=== PATIENT | male | born 1940 | race Hispanic/Latino ===

== ENCOUNTER 2020-05-19 17:49 | Inpatient (IN) | payer OTHER ==
[~2020-05-19] VITALS: Ht 170.2 cm; Wt 103.0 kg
[~2020-05-19 17:49] MED LIST: CALC500T7 PO; CHOL500050 PO; ETOMIDATE 2 MG/ML 10 ML VIAL IVP ONE; IBUP-2070 PO; MAGN27TA2 PO; METO-408 PO; ROCURONIUM BROMIDE 10MG/1ML 5ML VL IV ONE; TAMS0.4C32 PO; VALS80TA30 PO; [UNRECOGNIZED DRUG - OTHER]
[2020-05-19] MEDS ORDERED: ALBUTEROL INHALER 90MCG/INH IH ONE (18:33)
[2020-05-19] MEDS ORDERED: SODIUM CHLORIDE 0.9% 1000ML 3,000 ML IV ONE (18:34)
[2020-05-19 18:50] LABS: ABG BASE EXCESS 0.7 mmol/L (-2.0-3.0); ABG HCO3 23.7 mmol/L (21.0-28.0); ABG OXYGEN SATURATION 87.8 % (95.0-99.0); ABG PCO2 34 mmHg (35-48)
[2020-05-19] MEDS ORDERED: AZITHROMYCIN 500MG+NS 250ML 250 ML IV ONE (19:03)
[2020-05-19] MEDS ORDERED: CEFTRIAXONE SODIUM 1 GM ONE (19:04)
[2020-05-19 19:26] LABS: BASOPHILS % (AUTO) 0.1 % (0.0-5.0); HEMATOCRIT 49.1 % (42-54); LYMPHOCYTES % (AUTO) 6.9 % (21.0-51.0); MEAN CORPUSCULAR HEMOGLOBIN 30.3 pg (27.0-33.0); MEAN CORPUSCULAR HGB CONC 34.2 g/dL (32.0-36.0); MEAN CORPUSCULAR VOLUME 88.6 fL (79-99); MONOCYTES % (AUTO) 10.3 % (3.0-13.0); NEUTROPHILS % (AUTO) 82.1 % (40.0-77.0); PLATELET COUNT (AUTO) 237 K/uL (130-400); RED BLOOD CELL COUNT(AUTO) 5.54 MIL/uL (4.50-6.20); RED CELL DISTRIBUTION WIDTH 13.6 % (11.0-15.5)
[2020-05-19 19:39] LABS: INR 0.99 (0.85-1.15); PARTIAL THROMBOPLASTIN TIME 32.5 SEC (26.3-35.5); PROTHROMBIN TIME 10.7 SEC (9.6-11.6)
[2020-05-19 19:41] LABS: RAPID GROUP A STREP NEGATIVE (NEGATIVE)
[2020-05-19 20:09] LABS: CREATININE 2.4 mg/dL (0.5-1.5)
[2020-05-19] MEDS ORDERED: METHYLPREDNISOLONE SOD SUCC 40MG/ML 1ML ONE (20:11)
[2020-05-19 20:14] LABS: ALBUMIN 2.9 g/dL (3.5-5.0); BILIRUBIN,TOTAL 0.9 mg/dL (0.2-1.0); TOTAL PROTEIN, SERUM 7.1 g/dL (6.0-8.3)
[2020-05-19] MEDS ORDERED: POTASSIUM CHLORIDE 10MEQ/100ML 100 ML IV ONE (20:42)
[2020-05-19] MEDS: SODIUM CHLORIDE 0.9% 1000ML 1,000 ML IV SCH (20:57)
[2020-05-19] MEDS: CEFTRIAXONE SODIUM 1 GM IV SCH (21:00)
[2020-05-19] MEDS ORDERED: LACTULOSE 20 GM/30 ML UDCUP PO PRN (21:00)
[2020-05-19] MEDS: AZITHROMYCIN 500MG+NS 250ML 250 ML IV SCH (21:00)
[2020-05-19] MEDS ORDERED: ACETAMINOPHEN 325 MG TAB PO PRN (21:00)
[2020-05-19] MEDS: METHYLPREDNISOLONE SOD SUCC 125MG/2ML VIAL IV SCH (21:00)
[2020-05-19] MEDS ORDERED: ALBUTEROL INHALER 90MCG/INH IH PRN (21:00)
[2020-05-20] VITALS (26 sets, daily range): BP systolic 100–145; BP diastolic 48–97
[2020-05-20 03:45] LABS: APPEARANCE,URINE Clear (CLEAR); BILIRUBIN,URINE Negative (NEGATIVE); COLOR,URINE Yellow (YELLOW); GLUCOSE, URINE (UA) Negative (NEGATIVE); KETONES,URINE Trace mg/dL (NEGATIVE); LEUKOCYTE ESTERASE ,URINE Negative (NEGATIVE); NITRATE,URINE Negative (NEGATIVE); OCCULT BLOOD,URINE Negative (NEGATIVE); PROTEIN,URINE Negative (NEGATIVE)
[2020-05-20] MEDS ORDERED: METHYLPREDNISOLONE SOD SUCC 40MG/ML 1ML ONE (04:43)
[2020-05-20 04:49] LABS: BASOPHILS % (AUTO) 0.1 % (0.0-5.0); HEMATOCRIT 47.3 % (42-54); LYMPHOCYTES % (AUTO) 7.7 % (21.0-51.0); MEAN CORPUSCULAR HEMOGLOBIN 29.7 pg (27.0-33.0); MEAN CORPUSCULAR HGB CONC 33.6 g/dL (32.0-36.0); MEAN CORPUSCULAR VOLUME 88.2 fL (79-99); MONOCYTES % (AUTO) 6.4 % (3.0-13.0); PLATELET COUNT (AUTO) 226 K/uL (130-400); RED BLOOD CELL COUNT(AUTO) 5.36 MIL/uL (4.50-6.20); RED CELL DISTRIBUTION WIDTH 13.7 % (11.0-15.5); WHITE BLOOD COUNT (AUTO) 7.5 K/uL (4.8-10.8)
[2020-05-20] MEDS: METHYLPREDNISOLONE SOD SUCC 125MG/2ML VIAL IV SCH ×3 (05:00→20:32)
[2020-05-20 05:02] LABS: ALBUMIN 2.6 g/dL (3.5-5.0); BILIRUBIN,TOTAL 0.6 mg/dL (0.2-1.0); CREATININE 2.1 mg/dL (0.5-1.5); POTASSIUM 3.6 mmol/L (3.5-5.1); TOTAL PROTEIN, SERUM 6.6 g/dL (6.0-8.3)
[2020-05-20] MEDS: SODIUM CHLORIDE 0.9% 1000ML 1,000 ML IV SCH (06:57)
[2020-05-20] MEDS ORDERED: ENOXAPARIN SODIUM 40 MG/0.4 ML SYRINGE SQ ONE (08:57)
[2020-05-20] MEDS ORDERED: ENOXAPARIN SODIUM 40 MG/0.4 ML SYRINGE SQ SCH (09:00)
--- NOTE | 2020-05-20 09:40 | NUR ---
Admitted from ICU, AAOX3, noted shortness of breath with minor exertion, currently on BIPAP 16/6, Rate 12, FIO2 60%, COVID positive, Dx Acute Hypoxic Respiratory Failure.
[2020-05-20] MEDS: FAMOTIDINE 20MG TAB 20 MG TAB PO SCH (10:58)
[2020-05-20] MEDS ORDERED: FUROSEMIDE 10 MG/ML 4ML VIAL IV SCH (12:07)
[2020-05-20] MEDS ORDERED: ASPI-1005 PO (12:11)
[2020-05-20] MEDS ORDERED: DEXL60CA3 PO (12:11)
[2020-05-20] MEDS ORDERED: LOSA1TAB54 PO (12:11)
[2020-05-20] MEDS ORDERED: MIRA25TA PO (12:11)
[2020-05-20] MEDS ORDERED: BRIM5DRO OP (12:11)
[2020-05-20] MEDS ORDERED: CARB15DR OP (12:11)
[2020-05-20] MEDS ORDERED: ENOXAPARIN SODIUM 60 MG/0.6 ML SQ SCH (15:45)
[2020-05-20] MEDS ORDERED: POTASSIUM CHLORIDE 10% ELIXIR 20 MEQ/15 ML UDCUP PO PRN (17:15)
[2020-05-20] MEDS ORDERED: POTASSIUM CHLORIDE 20MEQ/100ML 100 ML IV PRN (17:15)
[2020-05-20] MEDS ORDERED: LIDOCAINE HCL-MPF 1% 2ML VIAL IV PRN ×2 (17:15)
[2020-05-20] MEDS: POTASSIUM CHLORIDE 20 MEQ ERTAB PO PRN (17:22)
--- NOTE | 2020-05-20 18:45 | NUR ---
Paged Dr Wolff to notify about pt's speaking to patient's son X 2 via phone and now agrees for possible Convalescent Plasma Transfusion, pending MD to return call.
--- NOTE | 2020-05-20 20:00 | NUR ---
ASSESSMENT PT RESTING QUIETLY IN BED. BIPAP 16/6/12/60% WITH TENT INTACT. PT PULLED OUT IV. IV RESTARTED TO RIGHT WRIST 20G WITHOUT DIFFICULTY. AAOX4, FALLOWS ALL COMMANDS, SLOVAK SPEAKING ONLY, BOILERMAKER'S ASSISTANT USED. CURRENTLY DENIES ANY PAIN. CALLBELL REVIEWED AND WITHIN REACH, BEDSIDE MONITORS ADJUSTED PER PT PARAMETERS. ASSESSMENT COMPLETED, SEE FOLLOW SHEET
[2020-05-20] MEDS: CEFTRIAXONE SODIUM 1 GM IV SCH (20:32)
[2020-05-20] MEDS: AZITHROMYCIN 500MG+NS 250ML 250 ML IV SCH (20:32)
--- NOTE | 2020-05-20 23:59 | NUR ---
ASSESSMENT PT RESTING QUIETLY IN BED. BIPAP 16//12/60% WITH TENT INTACT. AAOX4, FALLOWS ALL COMMANDS. CURRENTLY DENIES ANY PAIN. CALLBELL WITHIN REACH. ASSESSMENT COMPLETED, SEE FOLLOW SHEET
[2020-05-21] VITALS (39 sets, daily range): BP systolic 110–156; BP diastolic 45–102
[2020-05-21 04:28] LABS: ABG OXYGEN SATURATION 93.2 % (95.0-99.0); ABG PCO2 33 mmHg (35-48)
[2020-05-21] MEDS: METHYLPREDNISOLONE SOD SUCC 125MG/2ML VIAL IV SCH ×3 (05:10→20:49)
[2020-05-21 06:41] LABS: BASOPHILS % (AUTO) 0.1 % (0.0-5.0); HEMATOCRIT 47.7 % (42-54); LYMPHOCYTES % (AUTO) 8.1 % (21.0-51.0); MEAN CORPUSCULAR HEMOGLOBIN 29.2 pg (27.0-33.0); MEAN CORPUSCULAR HGB CONC 32.9 g/dL (32.0-36.0); MEAN CORPUSCULAR VOLUME 88.7 fL (79-99); NEUTROPHILS % (AUTO) 82.2 % (40.0-77.0); PLATELET COUNT (AUTO) 264 K/uL (130-400); RED BLOOD CELL COUNT(AUTO) 5.38 MIL/uL (4.50-6.20); RED CELL DISTRIBUTION WIDTH 13.8 % (11.0-15.5); WHITE BLOOD COUNT (AUTO) 10.5 K/uL (4.8-10.8)
[2020-05-21 07:27] LABS: CREATININE 1.5 mg/dL (0.5-1.5); MAGNESIUM 2.4 mg/dL (1.80-2.40); PHOSPHORUS 3.2 mg/dL (2.5-4.9); POTASSIUM 3.4 mmol/L (3.5-5.1)
[2020-05-21] MEDS: FUROSEMIDE 10 MG/ML 2ML VIAL IV SCH (08:33)
[2020-05-21] MEDS: FAMOTIDINE 20MG TAB 20 MG TAB PO SCH (08:33)
[2020-05-21] MEDS: ENOXAPARIN SODIUM 100 MG/1 ML SQ SCH (08:34)
[2020-05-21] MEDS: INSULIN HUMULIN R 100 UNIT/ML 3ML SQ SCH ×3 (11:30→20:47)
--- NOTE | 2020-05-21 15:40 | NUR ---
cm note spoke to pt states resides at home alone, is currently out of state visiting family.no dme, ambulates per self, uses Cpap at hs. states he is independent with ambulation and adls . has 2 adult sons who help him with meals, they provide him at home. dc plan is back to home at time of dc. states no dc needs. Addendum: 05/21/20 at 1544 by RASHMI ROLDAN CM Amended: Links added.
[2020-05-21] MEDS ORDERED: POLYETHYLENE GLYCOL 3350 17 GM POWD.PACK ONE (15:45)
[2020-05-21] MEDS: POTASSIUM CHLORIDE 20 MEQ ERTAB PO PRN ×2 (15:49→15:59)
--- NOTE | 2020-05-21 19:30 | NUR ---
ASSESSMENT PT RESTING QUIETLY IN BED. HIGH FLOW O2 INTACT. AAOX4, FALLOWS ALL COMMANDS, INDONESIAN SPEAKING ONLY, PAINTER DRUM USED. CURRENTLY DENIES ANY PAIN. CALLBELL REVIEWED AND WITHIN REACH, BEDSIDE MONITORS ADJUSTED PER PT PARAMETERS. ASSESSMENT COMPLETED, SEE FOLLOW SHEET
[2020-05-21] MEDS: AZITHROMYCIN 500MG+NS 250ML 250 ML IV SCH (20:47)
[2020-05-21] MEDS: CEFTRIAXONE SODIUM 1 GM IV SCH (20:48)
[2020-05-21] MEDS: POLYETHYLENE GLYCOL 3350 17 GM POWD.PACK PO SCH (20:48)
--- NOTE | 2020-05-21 23:15 | NUR ---
RADHA GARCIA MADE AWARE OF CONVALESCENT PLASMA AVAILABLE, SEE ORDERS.
[2020-05-22] VITALS (39 sets, daily range): BP systolic 105–173; BP diastolic 51–110
--- NOTE | 2020-05-22 | NUR ---
ASSESSMENT PT RESTING QUIETLY IN BED. HI-FLOW O2 INTACT, PT CONTINUES TO MOVE AROUND AND TALK. PT ENCOURAGED SEVERAL TIMES TO CONSERVE ENERGY. CURRENTLY DENIES ANY PAIN. CALLBELL WITHIN REACH. ASSESSMENT COMPLETED, SEE FOLLOW SHEET
[2020-05-22] MEDS ORDERED: SODIUM CHLORIDE 0.9% 250 ML IV ONE ×2 (01:31→19:59)
[2020-05-22 05:08] LABS: ABG BASE EXCESS 2.7 mmol/L (-2.0-3.0); ABG HCO3 24.8 mmol/L (21.0-28.0); ABG OXYGEN SATURATION 91.1 % (95.0-99.0); ABG PCO2 31 mmHg (35-48)
[2020-05-22] MEDS: METHYLPREDNISOLONE SOD SUCC 125MG/2ML VIAL IV SCH ×2 (05:29→13:28)
[2020-05-22] MEDS: INSULIN HUMULIN R 100 UNIT/ML 3ML SQ SCH ×4 (05:36→21:39)
[2020-05-22 06:55] LABS: BASOPHILS % (AUTO) 0.1 % (0.0-5.0); HEMATOCRIT 47.6 % (42-54); LYMPHOCYTES % (AUTO) 7.2 % (21.0-51.0); MEAN CORPUSCULAR HEMOGLOBIN 29.5 pg (27.0-33.0); MEAN CORPUSCULAR VOLUME 89.3 fL (79-99); MONOCYTES % (AUTO) 10.8 % (3.0-13.0); NEUTROPHILS % (AUTO) 81.1 % (40.0-77.0); PLATELET COUNT (AUTO) 300 K/uL (130-400); RED BLOOD CELL COUNT(AUTO) 5.33 MIL/uL (4.50-6.20); RED CELL DISTRIBUTION WIDTH 13.7 % (11.0-15.5); WHITE BLOOD COUNT (AUTO) 11.8 K/uL (4.8-10.8)
[2020-05-22 07:19] LABS: ALBUMIN 2.8 g/dL (3.5-5.0); CREATININE 1.4 mg/dL (0.5-1.5); POTASSIUM 3.6 mmol/L (3.5-5.1); TOTAL PROTEIN, SERUM 6.9 g/dL (6.0-8.3)
[2020-05-22] MEDS: POLYETHYLENE GLYCOL 3350 17 GM POWD.PACK PO SCH ×2 (08:02→20:50)
[2020-05-22] MEDS: POTASSIUM CHLORIDE 20 MEQ ERTAB PO PRN ×2 (08:02→15:05)
[2020-05-22] MEDS: FAMOTIDINE 20MG TAB 20 MG TAB PO SCH (08:02)
[2020-05-22] MEDS: FUROSEMIDE 10 MG/ML 2ML VIAL IV SCH (08:02)
[2020-05-22] MEDS: ENOXAPARIN SODIUM 100 MG/1 ML SQ SCH (08:03)
[2020-05-22] MEDS: HYDRALAZINE HCL 20 MG/ML VIAL IV PRN ×2 (08:04→20:49)
[2020-05-22] MEDS ORDERED: PHARMACY COMMUNICATION MISC SCH (14:00)
[2020-05-22] MEDS: LORAZEPAM 0.5 MG TABLET PO PRN ×2 (15:04→20:51)
[2020-05-22] MEDS ORDERED: FUROSEMIDE 10 MG/ML 2ML VIAL IV SCH (15:20)
[2020-05-22] MEDS ORDERED: DEXAMETHASONE SOD PHOSPHATE 4 MG/ML 1ML VIAL IVP ONE (15:20)
[2020-05-22] MEDS ORDERED: REMDESIVIR (INVESTIGATIONAL) 200 MG/250 ML NS IV ONE (17:00)
[2020-05-22] MEDS: PHARMACY COMMUNICATION MISC SCH (17:00)
[2020-05-22] MEDS: FUROSEMIDE 10 MG/ML 4ML VIAL IV SCH (20:49)
[2020-05-22] MEDS: AZITHROMYCIN 500MG+NS 250ML 250 ML IV SCH (20:49)
[2020-05-22] MEDS: CEFTRIAXONE SODIUM 1 GM IV SCH (20:49)
[2020-05-22] MEDS ORDERED: METHYLPREDNISOLONE SOD SUCC 40MG/ML 1ML IVP SCH (21:00)
[2020-05-23] VITALS (41 sets, daily range): BP systolic 118–159; BP diastolic 52–109
[2020-05-23] MEDS: PHARMACY COMMUNICATION MISC SCH ×3 (01:00→17:00)
[2020-05-23 05:34] LABS: BASOPHILS % (AUTO) 0.2 % (0.0-5.0); HEMATOCRIT 49.7 % (42-54); LYMPHOCYTES % (AUTO) 7.4 % (21.0-51.0); MEAN CORPUSCULAR HEMOGLOBIN 29.9 pg (27.0-33.0); MONOCYTES % (AUTO) 13.2 % (3.0-13.0); NEUTROPHILS % (AUTO) 76.6 % (40.0-77.0); PLATELET COUNT (AUTO) 278 K/uL (130-400); RED BLOOD CELL COUNT(AUTO) 5.65 MIL/uL (4.50-6.20); RED CELL DISTRIBUTION WIDTH 13.7 % (11.0-15.5); WHITE BLOOD COUNT (AUTO) 13.8 K/uL (4.8-10.8)
[2020-05-23 06:04] LABS: BILIRUBIN,TOTAL 1.5 mg/dL (0.2-1.0); CREATININE 1.6 mg/dL (0.5-1.5); POTASSIUM 3.8 mmol/L (3.5-5.1); TOTAL PROTEIN, SERUM 6.9 g/dL (6.0-8.3)
[2020-05-23] MEDS: INSULIN HUMULIN R 100 UNIT/ML 3ML SQ SCH ×4 (07:30→20:37)
[2020-05-23 08:23] LABS: ABG BASE EXCESS 1.7 mmol/L (-2.0-3.0); ABG HCO3 24.1 mmol/L (21.0-28.0); ABG OXYGEN SATURATION 93.1 % (95.0-99.0); ABG PCO2 32 mmHg (35-48)
[2020-05-23] MEDS: FAMOTIDINE 20MG TAB 20 MG TAB PO SCH (08:28)
[2020-05-23] MEDS: FUROSEMIDE 10 MG/ML 4ML VIAL IV SCH ×2 (08:28→19:40)
[2020-05-23] MEDS: LORAZEPAM 0.5 MG TABLET PO PRN (08:28)
[2020-05-23] MEDS: POLYETHYLENE GLYCOL 3350 17 GM POWD.PACK PO SCH ×2 (08:29→19:41)
[2020-05-23] MEDS: POTASSIUM CHLORIDE 20 MEQ ERTAB PO PRN (08:29)
[2020-05-23] MEDS: ENOXAPARIN SODIUM 100 MG/1 ML SQ SCH (08:29)
[2020-05-23] MEDS: ONDANSETRON HCL 4 MG/2 ML VIAL IV PRN (11:45)
--- NOTE | 2020-05-23 12:15 | NUR ---
CHANGE IN PATIENT CONDITION PATIENT HAD TAKEN OFF HIS GOWN, OXYGEN, AND LEADS, AND HAD HIS LEGS HANGING OVER SIDE OF BED WHEN I SAW HIM AT 1050. I KNOCKED LOUDLY ON THE WINDOW TO THE ROOM, MOTIONING HIM TO STOP AND GET BACK INTO BED. I WAS TRYING TO DON PPE FAST I COULD, PATIENT CONTINUED TO GET OUT OF BED AND SLOWLY SAT DOWN ON THE FLOOR. HE DID NOT FALL. WHEN I WENT IN ROOM I ASKED HIM WHY HE DECIDED TO GO TO THE FLOOR. PATIENT STATED HE DIDN'T KNOW AND WAS VISIBLY SOILED. PATIENT ASSISTED BACK INTO BED AND CLEANED BY MYSELF AND NURSE AIDS. ICU DIRECTOR AND NEW CAR DRIVER FOR [employer] MADE AWARE. ONE TO ONE SITTER ORDER TO BE PLACED. PATIENT'S SON, VISHAL, INFORMED VIA TELEPHONE OF THE INCIDENT AND IS AWARE. PATIENT FOLLOWS COMMANDS AT TIMES YET IS IMPULSIVE AND REPETITIVE. ICU PHYSICIAN TO FOLLOW UP ON PATIENT'S CASE TODAY
[2020-05-23] MEDS ORDERED: MAG HYDROX/AL HYDROX/SIMETH ES 30 ML SUSP UDCUP PO PRN (17:30)
[2020-05-23] MEDS: REMDESIVIR (INVESTIGATIONAL) 100 MG in SODIUM CHLORIDE 0.9% 250 ML IV SCH (17:37)
[2020-05-23] MEDS: AZITHROMYCIN 500MG+NS 250ML 250 ML IV SCH (19:40)
[2020-05-23] MEDS: CEFTRIAXONE SODIUM 1 GM IV SCH (19:40)
[2020-05-24] VITALS (35 sets, daily range): BP systolic 86–175; BP diastolic 43–110
[2020-05-24] MEDS: PHARMACY COMMUNICATION MISC SCH ×3 (01:00→17:00)
[2020-05-24] MEDS ORDERED: LORAZEPAM 2 MG/ML 1 ML VIAL ONE (01:40)
[2020-05-24] MEDS ORDERED: LORAZEPAM 2 MG/ML 1 ML VIAL IVP ONE (01:45)
--- NOTE | 2020-05-24 02:14 | NUR ---
Patient was restless and anxious, ADONIS neal was notified that patient has prn Ativan p.o but patient has shortness of breath and unsafe to give p.o at this time,received order to give Lorazepam 0.5mg IV X1 and was administered.Will continue to monitor patient.Patient remained on one to one.
[2020-05-24] MEDS: INSULIN HUMULIN R 100 UNIT/ML 3ML SQ SCH ×4 (05:22→20:30)
--- NOTE | 2020-05-24 06:46 | NUR ---
Pt.. emained intermittently moving moving around and each time he moved he desaturated in the 80's and if he stays calm ,his Saturation will improved to the 90's.Son called this morning and wanting to have rounding MD's to call the patient's son in law who is a doctor.Informed to the caller that it will be relayed in the report .Placed call for ADONIS Contreras for an upsdate of patient's condition, wqaiting to call back.
[2020-05-24] MEDS: POLYETHYLENE GLYCOL 3350 17 GM POWD.PACK PO SCH ×2 (07:48→20:00)
[2020-05-24 08:03] LABS: BASOPHILS % (AUTO) 0.3 % (0.0-5.0); HEMATOCRIT 52.5 % (42-54); MEAN CORPUSCULAR HEMOGLOBIN 29.6 pg (27.0-33.0); MEAN CORPUSCULAR HGB CONC 33.1 g/dL (32.0-36.0); MEAN CORPUSCULAR VOLUME 89.4 fL (79-99); MONOCYTES % (AUTO) 6.3 % (3.0-13.0); NEUTROPHILS % (AUTO) 87.5 % (40.0-77.0); PLATELET COUNT (AUTO) 312 K/uL (130-400); RED BLOOD CELL COUNT(AUTO) 5.87 MIL/uL (4.50-6.20); RED CELL DISTRIBUTION WIDTH 13.9 % (11.0-15.5); WHITE BLOOD COUNT (AUTO) 15.6 K/uL (4.8-10.8)
[2020-05-24] MEDS: ENOXAPARIN SODIUM 100 MG/1 ML SQ SCH (08:12)
[2020-05-24] MEDS: ACETAMINOPHEN 325 MG TAB PO PRN (08:17)
[2020-05-24] MEDS: FUROSEMIDE 10 MG/ML 4ML VIAL IV SCH (08:17)
[2020-05-24] MEDS: FAMOTIDINE 20MG TAB 20 MG TAB PO SCH ×2 (08:18→08:29)
[2020-05-24 08:26] LABS: BILIRUBIN,TOTAL 1.7 mg/dL (0.2-1.0); CREATININE 1.7 mg/dL (0.5-1.5); POTASSIUM 3.2 mmol/L (3.5-5.1); TOTAL PROTEIN, SERUM 6.9 g/dL (6.0-8.3)
[2020-05-24] MEDS: POTASSIUM CHLORIDE 20MEQ/100ML 100 ML IV PRN ×3 (08:39→16:51)
[2020-05-24] MEDS ORDERED: ACETAMINOPHEN 650 MG SUPPOSITORY RC PRN (09:45)
[2020-05-24] MEDS: LORAZEPAM 0.5 MG TABLET PO PRN (09:50)
[2020-05-24 13:00] LABS: ABG BASE EXCESS 2.9 mmol/L (-2.0-3.0); ABG HCO3 25.6 mmol/L (21.0-28.0); ABG OXYGEN SATURATION 89.3 % (95.0-99.0); ABG PCO2 34 mmHg (35-48)
[2020-05-24] MEDS ORDERED: PROPOFOL 1000 MG/100 ML 100 ML IV ONE (14:59)
[2020-05-24 15:21] LABS: CREATININE 1.7 mg/dL (0.5-1.5); POTASSIUM 3.5 mmol/L (3.5-5.1)
[2020-05-24] MEDS ORDERED: FENTANYL CITRATE PF 0.05 MG/ML 1,000 MCG in SODIUM CHLORIDE 0.9% 100 ML PRN (15:30)
--- NOTE | 2020-05-24 16:27 | NUR ---
RD NOTE - Tube Feedings RD notification received. Pt is intubated. ICU. Recommend to initiate Trophic Tube Feedings: Vital High Protein initiated at 20mls/hr for first 5 hours. Increase rate as tolerated to goal rate of 35mls/hr to provide 840kcal, 74gm protein, 702mls H2O. Tube Feeding Recommendations faxed to [phone], 2nd Floor, Pod B. RN notified. Please notify as additional nutrition concerns arise. Thank you.
[2020-05-24] MEDS: FENTANYL 1000MCG+NS 100ML 100 ML IV SCH (16:46)
[2020-05-24 16:49] LABS: ABG BASE EXCESS -0.4 mmol/L (-2.0-3.0); ABG HCO3 23.5 mmol/L (21.0-28.0); ABG OXYGEN SATURATION 92.7 % (95.0-99.0); ABG PCO2 37 mmHg (35-48)
[2020-05-24] MEDS: REMDESIVIR (INVESTIGATIONAL) 100 MG in SODIUM CHLORIDE 0.9% 250 ML IV SCH (18:18)
[2020-05-24] MEDS: MIDAZOLAM 50MG-0.9% NS 50ML 50 ML IV SCH (18:21)
[2020-05-24] MEDS: CEFTRIAXONE SODIUM 1 GM IV SCH (20:00)
[2020-05-24] MEDS: AZITHROMYCIN 500MG+NS 250ML 250 ML IV SCH (20:00)
[2020-05-24] MEDS ORDERED: NOREPINEPHRINE 4MG/NS 250ML 250 ML IV SCH (20:00)
--- NOTE | 2020-05-24 20:00 | NUR ---
Patients SBP dropped in the 70's. ADONIS Salcido notified and received order to start Levophed drip.
[2020-05-25] VITALS (50 sets, daily range): BP systolic 75–139; BP diastolic 43–86
[2020-05-25] MEDS: PHARMACY COMMUNICATION MISC SCH ×3 (01:00→17:00)
[2020-05-25] MEDS: MIDAZOLAM 50MG-0.9% NS 50ML 50 ML IV SCH ×3 (02:18→22:00)
[2020-05-25] MEDS: FENTANYL 1000MCG+NS 100ML 100 ML IV SCH ×3 (03:28→21:17)
[2020-05-25] MEDS: INSULIN HUMULIN R 100 UNIT/ML 3ML SQ SCH ×4 (06:02→21:00)
[2020-05-25 06:22] LABS: BASOPHILS % (AUTO) 0.4 % (0.0-5.0); EOSINOPHILS % (AUTO) 0.2 % (0.0-8.0); HEMATOCRIT 56.9 % (42-54); LYMPHOCYTES % (AUTO) 6.2 % (21.0-51.0); MEAN CORPUSCULAR HEMOGLOBIN 29.7 pg (27.0-33.0); MEAN CORPUSCULAR HGB CONC 32.5 g/dL (32.0-36.0); MEAN CORPUSCULAR VOLUME 91.5 fL (79-99); MONOCYTES % (AUTO) 2.4 % (3.0-13.0); NEUTROPHILS % (AUTO) 88.6 % (40.0-77.0); NUCLEATED RED BLOOD CELLS 0.2 % (0.0-0.19); PLATELET COUNT (AUTO) 320 K/uL (130-400); RED BLOOD CELL COUNT(AUTO) 6.22 MIL/uL (4.50-6.20); RED CELL DISTRIBUTION WIDTH 15.2 % (11.0-15.5); WHITE BLOOD COUNT (AUTO) 16.4 K/uL (4.8-10.8)
[2020-05-25 06:54] LABS: ALBUMIN 2.8 g/dL (3.5-5.0); BILIRUBIN,DIRECT 0.5 mg/dL (0.0-0.3); BILIRUBIN,TOTAL 1.3 mg/dL (0.2-1.0); CREATININE 2.2 mg/dL (0.5-1.5); POTASSIUM 3.6 mmol/L (3.5-5.1); TOTAL PROTEIN, SERUM 7.1 g/dL (6.0-8.3)
[2020-05-25 07:16] LABS: CRP QUANTITATIVE 222.1 mg/L (0.00-9.0)
--- NOTE | 2020-05-25 07:34 | NUR ---
Patient remained vented and sedated.Endorsed care to incoming NOD using SBAR all questions answered.Patient occasionaly moves arms and legs when being suctioned.
[2020-05-25] MEDS: POLYETHYLENE GLYCOL 3350 17 GM POWD.PACK PO SCH ×2 (08:30→20:29)
[2020-05-25] MEDS ORDERED: FUROSEMIDE 10 MG/ML 4ML VIAL IV SCH (09:00)
[2020-05-25] MEDS: FAMOTIDINE 20MG TAB 20 MG TAB PO SCH (09:59)
[2020-05-25] MEDS: ENOXAPARIN SODIUM 100 MG/1 ML SQ SCH (10:01)
--- NOTE | 2020-05-25 10:48 | NUR ---
RD UPDATE - H2O Flushes Notification for Increase H2O flushes received. Recommend increase H2O flushes to 165ml Q6HRS. Flush Recommendations faxed to ext [phone] (2nd Floor, Pod B). Called RN station x2-no answer. Pt with Vital AF 1.2 Bolus feeding, 1 can every 6hrs (1136kcal, 71gm Protein, 768mL H2O). RD to continue to monitor. Please notify as additional nutrition concerns arise. Thank you.
[2020-05-25] MEDS: ACETAMINOPHEN 325 MG TAB PO PRN (11:07)
[2020-05-25 12:17] LABS: INR 1.25 (0.85-1.15); PARTIAL THROMBOPLASTIN TIME 32.4 SEC (26.3-35.5); PROTHROMBIN TIME 13.4 SEC (9.6-11.6)
--- NOTE | 2020-05-25 12:21 | NUR ---
GEOVANY CALDWELL Pt CURRENTLY INTUBATED. EVALUATION IS RECOMMENDED 24 HOURS POST EXTUBATION. Pt IS A 79 Y.O. MALE ADMITTED SECONDARY TO HYPOXIC RESPIRATORY FAILURE, COVID. Pt HAS A PAST MEDICAL HISTORY SIGNIFICANT FOR HYPERTENSION, CISCO, HLD, KIDNEY STONES, BPH. COMPLEX DIRECTOR COORDINATED CARE WITH NURSE VILLANUEVA. COMPLEX DIRECTOR WILL FOLLOW Pt. Addendum: 05/25/20 at [address] Amended: Links added.
[2020-05-25] MEDS: REMDESIVIR (INVESTIGATIONAL) 100 MG in SODIUM CHLORIDE 0.9% 250 ML IV SCH (18:17)
--- NOTE | 2020-05-25 19:35 | NUR ---
6 FR TRIPLE LUMEN INSERTED TO RT UPPER ARM SUCCESSFULLY
--- NOTE | 2020-05-25 20:00 | NUR ---
Ptient in prone position at 1999. Oxygen saturation improved.
[2020-05-25] MEDS: DEXAMETHASONE SOD PHOSPHATE 10MG/ML 1ML VIAL IVP SCH (20:28)
[2020-05-25] MEDS: CEFTRIAXONE SODIUM 1 GM IV SCH (20:28)
[2020-05-25] MEDS: AZITHROMYCIN 500MG+NS 250ML 250 ML IV SCH (20:28)
[2020-05-25] MEDS: PHENYLEPHRINE HCL 10 MG in SODIUM CHLORIDE 0.9% 250 ML IV PRN ×2 (21:00→23:28)
[2020-05-26] VITALS (66 sets, daily range): BP systolic 92–144; BP diastolic 39–90
[2020-05-26] MEDS: PHARMACY COMMUNICATION MISC SCH ×3 (01:00→17:00)
[2020-05-26] MEDS: PHENYLEPHRINE HCL 10 MG in SODIUM CHLORIDE 0.9% 250 ML IV PRN (01:55)
[2020-05-26 02:13] LABS: MAGNESIUM 2.1 mg/dL (1.80-2.40); POTASSIUM 3.7 mmol/L (3.5-5.1)
[2020-05-26] MEDS: POTASSIUM CHLORIDE 20MEQ/100ML 100 ML IV PRN (02:37)
[2020-05-26] MEDS: FENTANYL 1000MCG+NS 100ML 100 ML IV SCH ×4 (04:05→20:23)
[2020-05-26] MEDS: MIDAZOLAM 50MG-0.9% NS 50ML 50 ML IV SCH ×4 (04:05→20:58)
[2020-05-26 05:54] LABS: BILIRUBIN,TOTAL 0.8 mg/dL (0.2-1.0); CREATININE 1.5 mg/dL (0.5-1.5); POTASSIUM 4.8 mmol/L (3.5-5.1); TOTAL PROTEIN, SERUM 6.1 g/dL (6.0-8.3)
[2020-05-26] MEDS: INSULIN HUMULIN R 100 UNIT/ML 3ML SQ SCH ×4 (06:24→20:06)
[2020-05-26 07:00] LABS: ABG BASE EXCESS -1.4 mmol/L (-2.0-3.0); ABG HCO3 24.1 mmol/L (21.0-28.0); ABG OXYGEN SATURATION 91.7 % (95.0-99.0); ABG PCO2 44 mmHg (35-48)
--- NOTE | 2020-05-26 09:01 | NUR ---
FOLLOW UP. Pt CONTINUES TO BE INTUBATED AT THIS TIME. HOLD EVALUATION FOR 24 HOURS POST EXTUBATION. FORMULA ROOM WORKER COORDINATED WITH NURSE VIDAL. FORMULA ROOM WORKER WILL CONTINUE TO FOLLOW Pt. Addendum: 05/26/20 at 0903 by ESTER STRANGE [facility] Amended: Links added.
[2020-05-26] MEDS: ENOXAPARIN SODIUM 100 MG/1 ML SQ SCH (09:24)
[2020-05-26] MEDS: POLYETHYLENE GLYCOL 3350 17 GM POWD.PACK PO SCH ×2 (09:48→20:04)
[2020-05-26] MEDS: FAMOTIDINE 20MG TAB 20 MG TAB PO SCH (09:49)
--- NOTE | 2020-05-26 14:00 | NUR ---
DR. RIDDLE IN TO SEE PT. PLAN OF CARE DISCUSSED. FAMILY CONTACTED AND UPDATED ON PT CONDITION BY MD, ALL QUESTIONS ANSWERED. PT ON FENTANYL 200 MCGS/MIN, VERSED AT 10 MG/HR, LEVOPHED WEANED DOWN TO 0.2 MCGS/KG/MIN. PT IN PRONE POSITION, TOLERATING WELL, O2 SAT 98% ON 60 % FIO2. NO DISTRESS NOTED. CONTINUE TO MONITOR PT.
[2020-05-26] MEDS: REMDESIVIR (INVESTIGATIONAL) 100 MG in SODIUM CHLORIDE 0.9% 250 ML IV SCH (16:59)
[2020-05-26] MEDS: LACTULOSE 20 GM/30 ML UDCUP PO SCH (20:03)
[2020-05-26] MEDS: AZITHROMYCIN 500MG+NS 250ML 250 ML IV SCH (20:04)
[2020-05-26] MEDS: CEFTRIAXONE SODIUM 1 GM IV SCH (20:04)
[2020-05-26] MEDS: DEXAMETHASONE SOD PHOSPHATE 10MG/ML 1ML VIAL IVP SCH (21:07)
[2020-05-27] VITALS (89 sets, daily range): BP systolic 94–132; BP diastolic 43–82
[2020-05-27] MEDS: PHARMACY COMMUNICATION MISC SCH ×3 (01:00→17:00)
[2020-05-27] MEDS: FENTANYL 1000MCG+NS 100ML 100 ML IV SCH ×4 (02:48→20:35)
--- NOTE | 2020-05-27 03:00 | NUR ---
Patient repositioned into prone position at 0300. Patient tolerated well.
[2020-05-27 04:14] LABS: ABG BASE EXCESS -0.3 mmol/L (-2.0-3.0); ABG HCO3 25.1 mmol/L (21.0-28.0); ABG OXYGEN SATURATION 91.4 % (95.0-99.0); ABG PCO2 44 mmHg (35-48)
[2020-05-27 05:48] LABS: BASOPHILS % (AUTO) 0.2 % (0.0-5.0); HEMATOCRIT 46.3 % (42-54); LYMPHOCYTES % (AUTO) 2.1 % (21.0-51.0); MEAN CORPUSCULAR HEMOGLOBIN 30.1 pg (27.0-33.0); MEAN CORPUSCULAR HGB CONC 31.7 g/dL (32.0-36.0); MEAN CORPUSCULAR VOLUME 94.7 fL (79-99); MONOCYTES % (AUTO) 3.1 % (3.0-13.0); NEUTROPHILS % (AUTO) 93.5 % (40.0-77.0); PLATELET COUNT (AUTO) 273 K/uL (130-400); RED BLOOD CELL COUNT(AUTO) 4.89 MIL/uL (4.50-6.20); RED CELL DISTRIBUTION WIDTH 14.6 % (11.0-15.5); WHITE BLOOD COUNT (AUTO) 18.8 K/uL (4.8-10.8)
[2020-05-27 06:04] LABS: ALBUMIN 1.8 g/dL (3.5-5.0); BILIRUBIN,DIRECT 0.3 mg/dL (0.0-0.3); BILIRUBIN,TOTAL 0.5 mg/dL (0.2-1.0); CREATININE 1.2 mg/dL (0.5-1.5); POTASSIUM 4.1 mmol/L (3.5-5.1); TOTAL PROTEIN, SERUM 5.5 g/dL (6.0-8.3)
[2020-05-27] MEDS: INSULIN HUMULIN R 100 UNIT/ML 3ML SQ SCH ×4 (06:13→20:47)
[2020-05-27] MEDS: LACTULOSE 20 GM/30 ML UDCUP PO SCH ×2 (08:13→20:33)
[2020-05-27] MEDS: FAMOTIDINE 20MG TAB 20 MG TAB PO SCH (08:13)
[2020-05-27] MEDS: ENOXAPARIN SODIUM 100 MG/1 ML SQ SCH (08:14)
[2020-05-27] MEDS: MIDAZOLAM 50MG-0.9% NS 50ML 50 ML IV SCH ×3 (09:08→20:34)
[2020-05-27] MEDS: POLYETHYLENE GLYCOL 3350 17 GM POWD.PACK PO SCH ×2 (11:57→20:33)
--- NOTE | 2020-05-27 14:38 | NUR ---
FOLLOW UP. Pt CONTINUES TO BE INTUBATED AT THIS TIME. HOLD EVALUATION FOR 24 HOURS POST EXTUBATION. BANDOLEER STRAIGHTENER STAMPER COORDINATED WITH NURSE. BANDOLEER STRAIGHTENER STAMPER WILL CONTINUE TO FOLLOW Pt. Addendum: 05/27/[address] GAVINO SILVA Amended: Links added.
[2020-05-27] MEDS: ONDANSETRON HCL 4 MG/2 ML VIAL IV PRN (14:51)
[2020-05-27] MEDS: CEFTRIAXONE SODIUM 1 GM IV SCH (20:33)
[2020-05-27] MEDS: DEXAMETHASONE SOD PHOSPHATE 10MG/ML 1ML VIAL IVP SCH (21:10)
[2020-05-28] VITALS (53 sets, daily range): BP systolic 98–136; BP diastolic 42–85
[2020-05-28] MEDS: PHARMACY COMMUNICATION MISC SCH ×3 (01:00→16:40)
[2020-05-28] MEDS: MIDAZOLAM 50MG-0.9% NS 50ML 50 ML IV SCH ×2 (06:30→19:01)
[2020-05-28] MEDS: FENTANYL 1000MCG+NS 100ML 100 ML IV SCH ×2 (06:30→12:53)
[2020-05-28] MEDS: INSULIN HUMULIN R 100 UNIT/ML 3ML SQ SCH ×4 (06:31→20:43)
[2020-05-28 06:54] LABS: HEMATOCRIT 46.5 % (42-54); MEAN CORPUSCULAR HEMOGLOBIN 29.8 pg (27.0-33.0); MEAN CORPUSCULAR HGB CONC 31.8 g/dL (32.0-36.0); MEAN CORPUSCULAR VOLUME 93.8 fL (79-99); RED BLOOD CELL COUNT(AUTO) 4.96 MIL/uL (4.50-6.20); RED CELL DISTRIBUTION WIDTH 14.7 % (11.0-15.5); WHITE BLOOD COUNT (AUTO) 16.3 K/uL (4.8-10.8)
[2020-05-28 07:14] LABS: CREATININE 1.2 mg/dL (0.5-1.5); CRP QUANTITATIVE 122.1 mg/L (0.00-9.0); POTASSIUM 4.5 mmol/L (3.5-5.1)
[2020-05-28 07:23] LABS: ABG HCO3 24.1 mmol/L (21.0-28.0); ABG OXYGEN SATURATION 95.7 % (95.0-99.0); ABG PCO2 42 mmHg (35-48)
[2020-05-28] MEDS: POLYETHYLENE GLYCOL 3350 17 GM POWD.PACK PO SCH ×2 (08:25→20:20)
[2020-05-28] MEDS: LACTULOSE 20 GM/30 ML UDCUP PO SCH ×2 (08:25→20:20)
[2020-05-28] MEDS: ENOXAPARIN SODIUM 100 MG/1 ML SQ SCH (08:26)
[2020-05-28] MEDS: FAMOTIDINE 20MG TAB 20 MG TAB PO SCH (09:00)
[2020-05-28] MEDS ORDERED: METOLAZONE 2.5 MG TABLET PO SCH (15:41)
[2020-05-28] MEDS: FUROSEMIDE 10 MG/ML 4ML VIAL IV SCH (16:38)
[2020-05-28] MEDS: CEFTRIAXONE SODIUM 1 GM IV SCH (20:20)
[2020-05-28] MEDS: DEXAMETHASONE SOD PHOSPHATE 10MG/ML 1ML VIAL IVP SCH (20:20)
[2020-05-29] VITALS (33 sets, daily range): BP systolic 98–145; BP diastolic 51–99
[2020-05-29] MEDS: PHARMACY COMMUNICATION MISC SCH ×2 (00:10→08:20)
[2020-05-29] MEDS: FUROSEMIDE 10 MG/ML 4ML VIAL IV SCH ×2 (02:50→14:55)
[2020-05-29] MEDS: MIDAZOLAM 50MG-0.9% NS 50ML 50 ML IV SCH ×3 (04:24→19:45)
[2020-05-29] MEDS: INSULIN HUMULIN R 100 UNIT/ML 3ML SQ SCH ×4 (05:45→20:15)
[2020-05-29 06:00] LABS: BASOPHILS % (AUTO) 0.1 % (0.0-5.0); HEMATOCRIT 48.8 % (42-54); LYMPHOCYTES % (AUTO) 2.3 % (21.0-51.0); MEAN CORPUSCULAR HEMOGLOBIN 29.5 pg (27.0-33.0); MEAN CORPUSCULAR HGB CONC 32.2 g/dL (32.0-36.0); MEAN CORPUSCULAR VOLUME 91.7 fL (79-99); MONOCYTES % (AUTO) 3.4 % (3.0-13.0); NEUTROPHILS % (AUTO) 93.4 % (40.0-77.0); PLATELET COUNT (AUTO) 253 K/uL (130-400); RED BLOOD CELL COUNT(AUTO) 5.32 MIL/uL (4.50-6.20); RED CELL DISTRIBUTION WIDTH 14.8 % (11.0-15.5); WHITE BLOOD COUNT (AUTO) 14.1 K/uL (4.8-10.8)
[2020-05-29 06:14] LABS: BILIRUBIN,DIRECT 0.3 mg/dL (0.0-0.3); BILIRUBIN,TOTAL 0.9 mg/dL (0.2-1.0); CREATININE 1.6 mg/dL (0.5-1.5); CRP QUANTITATIVE 89.9 mg/L (0.00-9.0); POTASSIUM 4.1 mmol/L (3.5-5.1); TOTAL PROTEIN, SERUM 6.2 g/dL (6.0-8.3)
[2020-05-29 06:21] LABS: B-TYPE NATRIURETIC PEPTIDE 113 pg/mL (0-100)
[2020-05-29] MEDS: FENTANYL 1000MCG+NS 100ML 100 ML IV SCH ×2 (08:19→19:46)
[2020-05-29] MEDS: LACTULOSE 20 GM/30 ML UDCUP PO SCH ×2 (08:19→19:45)
[2020-05-29] MEDS: POLYETHYLENE GLYCOL 3350 17 GM POWD.PACK PO SCH ×2 (08:35→19:45)
[2020-05-29] MEDS: ENOXAPARIN SODIUM 100 MG/1 ML SQ SCH (10:50)
[2020-05-29] MEDS: FAMOTIDINE 20MG TAB 20 MG TAB PO SCH (10:51)
[2020-05-29] MEDS: METOLAZONE 2.5 MG TABLET PO SCH (11:06)
--- NOTE | 2020-05-29 12:06 | NUR ---
HOLD EVAL Pt CONTINUES TO BE INTUBATED. HOLD EVAL. SEASONER HAND WILL CONTINUE TO FOLLOW Pt. Addendum: 05/29/20 at 1211 by ESTER STRANGE, SPT ST Amended: Links added.
[2020-05-29] MEDS: DOCUSATE NA 100MG/10ML UDCUP NG SCH (12:15)
[2020-05-29] MEDS: POLYETHYLENE GLYCOL 3350 17 GM POWD.PACK NG SCH (15:01)
[2020-05-29] MEDS: METOCLOPRAMIDE 10 MG/2 ML VIAL IVP SCH (17:04)
[2020-05-29] MEDS: DEXAMETHASONE SOD PHOSPHATE 10MG/ML 1ML VIAL IVP SCH (19:45)
[2020-05-30] VITALS (39 sets, daily range): BP systolic 84–155; BP diastolic 44–93
[2020-05-30] MEDS: METOCLOPRAMIDE 10 MG/2 ML VIAL IVP SCH ×4 (00:02→16:45)
[2020-05-30 04:54] LABS: ABG BASE EXCESS 2.8 mmol/L (-2.0-3.0); ABG HCO3 26.7 mmol/L (21.0-28.0); ABG OXYGEN SATURATION 89.7 % (95.0-99.0); ABG PCO2 39 mmHg (35-48)
[2020-05-30] MEDS: FUROSEMIDE 10 MG/ML 2ML VIAL IV SCH ×2 (05:07→17:55)
[2020-05-30 05:12] LABS: HEMATOCRIT 47.8 % (42-54); MEAN CORPUSCULAR HEMOGLOBIN 29.8 pg (27.0-33.0); MEAN CORPUSCULAR HGB CONC 33.1 g/dL (32.0-36.0); MEAN CORPUSCULAR VOLUME 90.2 fL (79-99); RED BLOOD CELL COUNT(AUTO) 5.3 MIL/uL (4.50-6.20); RED CELL DISTRIBUTION WIDTH 14.3 % (11.0-15.5); WHITE BLOOD COUNT (AUTO) 12.5 K/uL (4.8-10.8)
[2020-05-30 05:19] LABS: CREATININE 1.7 mg/dL (0.5-1.5); POTASSIUM 3.9 mmol/L (3.5-5.1)
[2020-05-30] MEDS: INSULIN HUMULIN R 100 UNIT/ML 3ML SQ SCH ×4 (05:55→20:06)
[2020-05-30] MEDS: ENOXAPARIN SODIUM 100 MG/1 ML SQ SCH (08:39)
[2020-05-30] MEDS: POLYETHYLENE GLYCOL 3350 17 GM POWD.PACK PO SCH ×2 (08:39→19:13)
[2020-05-30] MEDS: LACTULOSE 20 GM/30 ML UDCUP PO SCH ×2 (08:39→20:04)
[2020-05-30] MEDS: FENTANYL 1000MCG+NS 100ML 100 ML IV SCH ×2 (08:40→19:31)
[2020-05-30] MEDS: FAMOTIDINE 20MG TAB 20 MG TAB PO SCH (08:40)
[2020-05-30] MEDS: METOLAZONE 2.5 MG TABLET PO SCH (08:40)
[2020-05-30] MEDS: MIDAZOLAM 50MG-0.9% NS 50ML 50 ML IV SCH ×2 (08:41→19:31)
[2020-05-30] MEDS: POLYETHYLENE GLYCOL 3350 17 GM POWD.PACK NG SCH ×2 (08:41→11:32)
[2020-05-30] MEDS: DOCUSATE NA 100MG/10ML UDCUP NG SCH (11:32)
--- NOTE | 2020-05-30 12:55 | NUR ---
FOLLOW UP COMPLETED Pt CONTINUES TO BE INTUBATED AT THIS TIME. GEOVANY CALDWELL. DIRECTOR TRUST WILL CONTINUE TO FOLLOW Pt. Addendum: 05/30/20 at 1256 by ESTER STRANGE, [facility] Amended: Links added.
--- NOTE | 2020-05-30 15:08 | NUR ---
RD UPDATE Pt continues with mechanical ventilation, prone positioning as per EMR. Pt continues with Bolus tube feeding of 1 can Vital af 1.2Q6. Elevated BG. Altered renal lab values. Pt LBM 05/23/20; recommend laxative/stool softener as medically feasible. RD to continue to monitor. Please notify as additional nutrition concerns arise. Thank you.
--- NOTE | 2020-05-30 15:19 | NUR ---
RD FOLLOW UP Pt continues to tolerate 75gm CCD diet order. 60mL ProMod protein supplementation in place. Pt positive for Pulmonary TB. Pending COVID test result. H/H 7.2/23.6, Alk 223, Alb 1.6. Recommend Glucerna BID RD to continue to monitor. Please notify as additional nutrition concerns arise. Thank you. Addendum: 05/30/20 at [address] NOTE ENTERED IN ERROR. PLEASE DISREGARD
--- NOTE | 2020-05-30 15:30 | NUR ---
PT PLACED SUPINE ORDERED. RR 28-30, O2 SAT 86-87%. SEDATION TITRATED NEEDED. DR. GAMBLE CALLED AND NOTIFIED OF PT CURRENT CONDITION/ABG/ AND CXR RESULTS.
[2020-05-30] MEDS ORDERED: LIDOCAINE HCL 1% 20 ML VIAL ONE (16:08)
[2020-05-30 16:12] LABS: ABG BASE EXCESS 1.8 mmol/L (-2.0-3.0); ABG HCO3 25.3 mmol/L (21.0-28.0); ABG OXYGEN SATURATION 87.8 % (95.0-99.0); ABG PCO2 36 mmHg (35-48)
--- NOTE | 2020-05-30 16:30 | NUR ---
DR. GAMBLE AT BEDSIDE FOR RIGHT CHEST TUBE INSERTION. CONSENT SECURED. 28 FR CHEST TUBE INSERTED BY AND PLACED ON -40 CM H20 SUCTION. SMALL LEAK NOTED. CXR ORDERED.
[2020-05-30] MEDS ORDERED: FENTANYL 25 MCG/HR PATCH TD SCH (18:45)
--- NOTE | 2020-05-30 20:00 | NUR ---
patient turned to prone position at 1999.
[2020-05-30] MEDS: DEXAMETHASONE SOD PHOSPHATE 10MG/ML 1ML VIAL IVP SCH (20:03)
[2020-05-30] MEDS: DEXMEDETOMIDINE HCL 200 MCG in SODIUM CHLORIDE 0.9% 50 ML IV SCH (21:16)
[2020-05-31] VITALS (93 sets, daily range): BP systolic 62–140; BP diastolic 36–87
[2020-05-31] MEDS: METOCLOPRAMIDE 10 MG/2 ML VIAL IVP SCH ×5 (00:45→21:33)
[2020-05-31] MEDS: PHENYLEPHRINE HCL 10 MG in SODIUM CHLORIDE 0.9% 250 ML IV PRN ×3 (01:34→20:50)
[2020-05-31 03:19] LABS: ABG BASE EXCESS 3.9 mmol/L (-2.0-3.0); ABG HCO3 28.7 mmol/L (21.0-28.0); ABG OXYGEN SATURATION 99.3 % (95.0-99.0); ABG PCO2 44 mmHg (35-48)
[2020-05-31] MEDS: FUROSEMIDE 10 MG/ML 2ML VIAL IV SCH (05:09)
[2020-05-31] MEDS: INSULIN HUMULIN R 100 UNIT/ML 3ML SQ SCH ×4 (05:34→21:00)
[2020-05-31 05:41] LABS: HEMATOCRIT 47.5 % (42-54); MEAN CORPUSCULAR HEMOGLOBIN 29.5 pg (27.0-33.0); MEAN CORPUSCULAR HGB CONC 32.6 g/dL (32.0-36.0); MEAN CORPUSCULAR VOLUME 90.3 fL (79-99); RED BLOOD CELL COUNT(AUTO) 5.26 MIL/uL (4.50-6.20); RED CELL DISTRIBUTION WIDTH 14.7 % (11.0-15.5); WHITE BLOOD COUNT (AUTO) 17.2 K/uL (4.8-10.8)
[2020-05-31 06:02] LABS: ALBUMIN 1.9 g/dL (3.5-5.0); BILIRUBIN,TOTAL 2.2 mg/dL (0.2-1.0); CREATININE 1.8 mg/dL (0.5-1.5); MAGNESIUM 3.2 mg/dL (1.80-2.40); PHOSPHORUS 5.9 mg/dL (2.5-4.9); TOTAL PROTEIN, SERUM 5.7 g/dL (6.0-8.3)
[2020-05-31 06:13] LABS: INR 1.13 (0.85-1.15); PARTIAL THROMBOPLASTIN TIME 29.9 SEC (26.3-35.5); PROTHROMBIN TIME 12.1 SEC (9.6-11.6)
[2020-05-31] MEDS: POLYETHYLENE GLYCOL 3350 17 GM POWD.PACK NG SCH ×2 (09:00→11:36)
[2020-05-31] MEDS ORDERED: METOLAZONE 2.5 MG TABLET PO SCH (09:00)
[2020-05-31] MEDS: LACTULOSE 20 GM/30 ML UDCUP PO SCH ×2 (09:00→21:00)
[2020-05-31] MEDS: POLYETHYLENE GLYCOL 3350 17 GM POWD.PACK PO SCH ×2 (09:00→21:00)
[2020-05-31] MEDS: FAMOTIDINE 20MG TAB 20 MG TAB PO SCH (09:00)
[2020-05-31] MEDS: ENOXAPARIN SODIUM 100 MG/1 ML SQ SCH (09:43)
[2020-05-31] MEDS: DOCUSATE NA 100MG/10ML UDCUP NG SCH (11:37)
[2020-05-31] MEDS: DEXMEDETOMIDINE HCL 200 MCG in SODIUM CHLORIDE 0.9% 50 ML IV SCH ×4 (13:24→23:55)
[2020-05-31] MEDS ORDERED: DOXYCYCLINE 100MG+NS 250ML 250 ML IV SCH (13:45)
[2020-05-31 15:01] LABS: HEMOGLOBIN A1C 6.5 % (4.0-6.0)
[2020-05-31] MEDS: DOXYCYCLINE HYCLATE 100 MG TABLET PO SCH ×2 (15:10→21:01)
[2020-05-31] MEDS: CEFEPIME HCL 1 GM VIAL IVP SCH ×2 (15:11→21:32)
[2020-05-31] MEDS ORDERED: LIDOCAINE HCL 1% 20 ML VIAL ONE (15:24)
[2020-05-31] MEDS: LIDOCAINE HCL 1% 20 ML VIAL INJ SCH ×2 (15:30→16:00)
--- NOTE | 2020-05-31 16:15 | NUR ---
SECOND CHEST TUBE INSERTION AT BEDSIDE DONE BY DR GAMBLE; DR GAMBLE AWARE PATIENT HAS HAD LOVENOX DOSE THIS AM AND STATED OK TO CONTINUE WITH PROCEDURE. FAMILY AWARE AND UP TO DATE WITH PATIENT STATUS. NO COMPLICATIONS NOTED DURING PROCEDURE. CONTINUOUS AIR LEAK NOTED BY MD AT TIME OF INSERTION; CXR ORDERED
[2020-05-31] MEDS: MIDAZOLAM 50MG-0.9% NS 50ML 50 ML IV SCH (17:26)
--- NOTE | 2020-05-31 19:00 | NUR ---
Pt unable to turn prone due to hemodynamic instability, will adjust drips and try later
[2020-05-31] MEDS ORDERED: PHARMACY COMMUNICATION MISC STA (20:39)
[2020-05-31] MEDS: DEXAMETHASONE SOD PHOSPHATE 10MG/ML 1ML VIAL IVP SCH (21:31)
[2020-05-31] MEDS: PHENYLEPHRINE HCL 50 MG/NS 250ML IV PRN ×2 (21:34)
[2020-06-01] VITALS (85 sets, daily range): BP systolic 43–177; BP diastolic 14–108
--- NOTE | 2020-06-01 06:00 | NUR ---
patient in respiratory distressed with hypotension, benchmarked paged
[2020-06-01 06:39] LABS: BASOPHILS % (AUTO) 0.2 % (0.0-5.0); HEMATOCRIT 44.4 % (42-54); LYMPHOCYTES % (AUTO) 4.1 % (21.0-51.0); MEAN CORPUSCULAR HEMOGLOBIN 29.7 pg (27.0-33.0); MEAN CORPUSCULAR VOLUME 92.9 fL (79-99); MONOCYTES % (AUTO) 3.1 % (3.0-13.0); NEUTROPHILS % (AUTO) 90.1 % (40.0-77.0); NUCLEATED RED BLOOD CELLS 0.6 % (0.0-0.19); PLATELET COUNT (AUTO) 255 K/uL (130-400); RED BLOOD CELL COUNT(AUTO) 4.78 MIL/uL (4.50-6.20); RED CELL DISTRIBUTION WIDTH 15.3 % (11.0-15.5); WHITE BLOOD COUNT (AUTO) 18.2 K/uL (4.8-10.8)
[2020-06-01] MEDS: CEFEPIME HCL 1 GM VIAL IVP SCH (06:44)
[2020-06-01] MEDS: METOCLOPRAMIDE 10 MG/2 ML VIAL IVP SCH ×4 (06:44→22:45)
[2020-06-01] MEDS: INSULIN HUMULIN R 100 UNIT/ML 3ML SQ SCH ×4 (06:46→21:00)
[2020-06-01 06:52] LABS: CREATININE 3.4 mg/dL (0.5-1.5); POTASSIUM 5.2 mmol/L (3.5-5.1)
--- NOTE | 2020-06-01 07:00 | NUR ---
Dr. Esparza updated orderers received and carried out
[2020-06-01 07:14] LABS: ABG BASE EXCESS -6.8 mmol/L (-2.0-3.0); ABG HCO3 16.8 mmol/L (21.0-28.0); ABG OXYGEN SATURATION 89.9 % (95.0-99.0); ABG PCO2 29 mmHg (35-48)
[2020-06-01] MEDS ORDERED: SODIUM CHLORIDE 0.9% 1000ML 1,000 ML IV ONE (07:43)
[2020-06-01] MEDS ORDERED: NOREPINEPHRINE BITARTRATE 8 MG in SODIUM CHLORIDE 0.9% 250 ML IV SCH (08:00)
[2020-06-01] MEDS: SODIUM CHLORIDE 0.9% 1000ML 1,000 ML IV SCH ×8 (08:05→14:30)
[2020-06-01] MEDS ORDERED: CALCIUM GLUCONATE 1 GM/10 ML VIAL IV SCH ×2 (08:08→19:00)
[2020-06-01] MEDS ORDERED: 1/2 NORMAL SALINE 1,000 ML IV SCH ×2 (08:15→14:30)
[2020-06-01] MEDS: ENOXAPARIN SODIUM 100 MG/1 ML SQ SCH ×2 (08:28→10:50)
[2020-06-01] MEDS: POLYETHYLENE GLYCOL 3350 17 GM POWD.PACK PO SCH ×2 (08:28→21:00)
[2020-06-01] MEDS ORDERED: SODIUM POLYSTYRENE SULFONATE 15 GM/60 ML ML NG SCH (08:30)
[2020-06-01] MEDS ORDERED: ROCURONIUM BROMIDE IV PRN (08:45)
[2020-06-01] MEDS ORDERED: LINEZOLID 600 MG/ISO-OSM 300 ML IV SCH (08:45)
[2020-06-01] MEDS ORDERED: SODIUM CHLORIDE 0.9% IV PRN (08:45)
[2020-06-01] MEDS ORDERED: ENOXAPARIN SODIUM 60 MG/0.6 ML SQ SCH (09:00)
[2020-06-01] MEDS ORDERED: MEROPENEM 1 GM VIAL IVP SCH (09:00)
[2020-06-01 09:13] LABS: ABG BASE EXCESS -9.2 mmol/L (-2.0-3.0); ABG OXYGEN SATURATION 96.7 % (95.0-99.0); ABG PCO2 25 mmHg (35-48)
[2020-06-01 09:20] LABS: CREATININE 3.8 mg/dL (0.5-1.5); POTASSIUM 5.2 mmol/L (3.5-5.1)
[2020-06-01] MEDS: NOREPINEPHRINE BITARTRATE 8 MG/NS 250ML IV SCH ×6 (09:30→17:34)
[2020-06-01] MEDS ORDERED: CALCIUM GLUCONATE 1 GM in SODIUM CHLORIDE 0.9% 50 ML IV SCH (09:45)
[2020-06-01] MEDS ORDERED: ALBUMIN (HUMAN) 25% 100 ML IV SCH (09:45)
--- NOTE | 2020-06-01 10:19 | NUR ---
FOLLOW UP COMPLETED. Pt CONTINUES TO BE INTUBATED. RECOMMEND HOLD EVALUATION AT THIS TIME. TELEPHONE SALES AGENT WILL CONTINUE TO FOLLOW Pt. Addendum: 06/01/20 at 1021 by ESTER STRANGE, SPT ST Amended: Links added.
[2020-06-01] MEDS: MIDAZOLAM 50MG-0.9% NS 50ML 50 ML IV SCH (10:45)
[2020-06-01] MEDS: FENTANYL 1000MCG+NS 100ML 100 ML IV SCH (10:47)
[2020-06-01] MEDS: LACTULOSE 20 GM/30 ML UDCUP PO SCH ×2 (10:48→21:00)
[2020-06-01] MEDS: FAMOTIDINE 20MG TAB 20 MG TAB PO SCH (10:48)
[2020-06-01] MEDS: POLYETHYLENE GLYCOL 3350 17 GM POWD.PACK NG SCH ×2 (10:49→12:15)
[2020-06-01] MEDS: DOXYCYCLINE HYCLATE 100 MG TABLET PO SCH (10:50)
[2020-06-01] MEDS: PHENYLEPHRINE HCL 50 MG/NS 250ML IV PRN ×6 (10:55→16:53)
[2020-06-01] MEDS ORDERED: VASOPRESSIN 40 UNITS in SODIUM CHLORIDE 0.9% 40 ML IV SCH (11:00)
[2020-06-01 11:28] LABS: ABG BASE EXCESS -18.8 mmol/L (-2.0-3.0); ABG OXYGEN SATURATION 95.2 % (95.0-99.0); ABG PCO2 34 mmHg (35-48)
[2020-06-01] MEDS ORDERED: PHARMACY COMMUNICATION MISC SCH (11:45)
[2020-06-01] MEDS ORDERED: SODIUM BICARB 50MEQ 50ML VIAL ONE ×3 (11:51→17:50)
[2020-06-01] MEDS: DOCUSATE NA 100MG/10ML UDCUP NG SCH (12:15)
[2020-06-01] MEDS ORDERED: SODIUM BICARB 50MEQ 50ML VIAL IV STA ×2 (12:32→16:45)
[2020-06-01] MEDS ORDERED: COMPOUND IV REFRIGERATED 1 EACH IVSOLN MISC PRN (12:45)
[2020-06-01] MEDS ORDERED: SODIUM BICARB 8.4% 50ML SYRING 150 MEQ in DEXTROSE 5%-WATER 1,000 ML IV SCH (12:45)
[2020-06-01] MEDS ORDERED: LIDOCAINE HCL 1% 20 ML VIAL INJ SCH (14:00)
--- NOTE | 2020-06-01 14:00 | NUR ---
FAMILY UPDATED VIA TELEPHONE BY DR FONSECA. FAMILY IS IN AGREEMENT TO MAKE PATIENT DNR.
[2020-06-01] MEDS ORDERED: LIDOCAINE HCL 1% 20 ML VIAL ONE (14:02)
[2020-06-01 14:24] LABS: ABG BASE EXCESS -22.4 mmol/L (-2.0-3.0); ABG HCO3 7.6 mmol/L (21.0-28.0); ABG OXYGEN SATURATION 91.8 % (95.0-99.0); ABG PCO2 31 mmHg (35-48)
[2020-06-01] MEDS: CHLORHEXIDINE GLUCONATE 473 ML MOUTHWASH MM SCH ×2 (14:30→17:17)
[2020-06-01] MEDS: ARTIFICIAL TEARS 3.5 GM OINTMENT OU SCH ×2 (14:30→20:30)
--- NOTE | 2020-06-01 14:30 | NUR ---
THIRD CHEST TUBE INSERTED TO RIGHT UPPER CHEST BY DR GARCIA AT BEDSIDE; DR GARCIA AWARE PATIENT HAS HAD LOVENOX DOSE THIS AM AND STATED OK TO CONTINUE WITH PROCEDURE. FAMILY AWARE AND UP TO DATE WITH PATIENT STATUS. NO COMPLICATIONS NOTED DURING PROCEDURE. CONTINUOUS AIR LEAK NOTED BY MD AT TIME OF INSERTION
[2020-06-01] MEDS: HYDROCORTISONE SOD SUCCINATE 100 MG/2 ML VIAL IV SCH ×2 (16:02→20:30)
[2020-06-01] MEDS: EPINEPHRINE 10 MG in SODIUM CHLORIDE 0.9% 250 ML IV SCH ×2 (16:52→18:42)
--- NOTE | 2020-06-01 17:00 | NUR ---
PATIENT STATUS DETERIORATING; DR GAMBLE AND DR GARCIA MADE AWARE; FAMILY CALLED AND UPDATED; SON [place], GIVEN OK BY MODEL ENGINE MECHANIC TO COME IN TO SEE PATIENT; MULTIPLE VASOPRESSORS HAVE BEEN STARTED AND MAXED OUT; PATIENT HAS HAD NO BP FOR ABOUT AN HOUR; HR LABILE AND RANGING IN UPPER 100S TO 150S; LAB LEVELS WORSENING; FAMILY IN AGREEMENT OF DNR STATUS. OXYGEN SATURATIONS HAVE BEEN IN HIGH 70S TO 80S. VENTILATOR CONTINUES TO BE AT PEEP OF 7 AND 100% FIO2. PATIENT'S SON IS AWARE PATIENT IS COVID POSITIVE WELL AND STATES HE IS AWARE AND WISHES TO SEE PATIENT ANYHOW. RISKS OF EXPOSURE EXPLAINED TO SON[place]. SON OK WITH RISKS OF ENTERING ROOM. PATIENT PROGNOSIS CONTINUES TO BE GRIM.
[2020-06-01 17:29] LABS: POTASSIUM 6.4 mmol/L (3.5-5.1)
[2020-06-01] MEDS ORDERED: CALCIUM GLUCONATE 1 GM in SODIUM CHLORIDE 0.9% 100 ML IV SCH (18:15)
[2020-06-01] MEDS: CALCIUM GLUCONATE 1 GM in SODIUM CHLORIDE 0.9% 50 ML IV SCH ×2 (18:42→19:15)
[2020-06-01] MEDS ORDERED: SODIUM BICARB 50MEQ 50ML VIAL IV SCH (19:00)
[2020-06-01] MEDS ORDERED: NOREPINEPHRINE BITARTRATE 32 MG in SODIUM CHLORIDE 0.9% 250 ML IV SCH (19:15)
[2020-06-01] MEDS ORDERED: PHENYLEPHRINE 100 MG/NS 250ML IV SCH ×2 (19:15)
--- NOTE | 2020-06-01 19:15 | NUR ---
Shift report given to nurse
[2020-06-01] MEDS ORDERED: EPINEPHRINE IV SCH (19:30)
[2020-06-01] MEDS ORDERED: SODIUM CHLORIDE 0.9% IV SCH (19:30)
--- NOTE | 2020-06-01 22:00 | NUR ---
Son(Carroll) at bedside. He states" He would like to Withdraw care for his father ".
--- NOTE | 2020-06-01 22:12 | NUR ---
CORY Gupta (Hospitalist) at Bedside
--- NOTE | 2020-06-01 22:45 | NUR ---
Matthew made conference call with family to confirm withdrawal of care decision with nurse as witness present.
--- NOTE | 2020-06-01 23:30 | NUR ---
Respiratory at bedside to extubate patient. Patient extubated at 2330
--- NOTE | 2020-06-01 23:45 | NUR ---
Patient asystole. Nurse confirmed. Son(Matthew) at bedside Relief Map Modeler notified. CN notified. also Notified.
--- NOTE | 2020-06-01 23:45 | NUR ---
CALLEDTO PRONOUNCE ONEYDAJOI [phone] ON THIS DAY 06/01/20 @ 8594. NO APICAL PULSE PRESENT BY AUSCULTATION, NO RESPIRATIONS PRESENT, NOT BILATERAL PAPILLARY REFLEXES NOTED. SON [place] CALL AT BEDSIDE. AUTOPSY DECLINED.
== END 2020-06-01 23:45 | disposition expired | DRG 870 ==
LOC: EDH 17:49 → EDHIP 21:10 → 2BH 05-20 09:47
PROVIDERS: ADMIT Hospitalist; ATTEND Hospitalist
PROC: 30233K1 Transfusion of Nonautologous Frozen Plasma into Peripheral Vein, Percutaneous Approach (ICD-10-PCS; 2020-05-22)
PROC: 02HV33Z Insertion of Infusion Device into Superior Vena Cava, Percutaneous Approach (ICD-10-PCS; 2020-05-22)
PROC: 0BH17EZ Insertion of Endotracheal Airway into Trachea, Via Natural or Artificial Opening (ICD-10-PCS; principal; 2020-05-24)
PROC: 5A1955Z Respiratory Ventilation, Greater than 96 Consecutive Hours (ICD-10-PCS; 2020-05-24)
PROC: 0W9930Z Drainage of Right Pleural Cavity with Drainage Device, Percutaneous Approach (ICD-10-PCS; 2020-05-31)
PROC: 0W9930Z Drainage of Right Pleural Cavity with Drainage Device, Percutaneous Approach (ICD-10-PCS; 2020-06-01)
DX: A41.89 Other specified sepsis (principal); U07.1 COVID-19; J96.01 Acute respiratory failure with hypoxia; J12.89 Other viral pneumonia; G92 Toxic encephalopathy; R65.21 Severe sepsis with septic shock; N17.9 Acute kidney failure, unspecified; J44.0 Chronic obstructive pulmonary disease with (acute) lower respiratory infection; E87.0 Hyperosmolality and hypernatremia; J93.9 Pneumothorax, unspecified; N18.9 Chronic kidney disease, unspecified; R62.7 Adult failure to thrive; D64.9 Anemia, unspecified; E11.22 Type 2 diabetes mellitus with diabetic chronic kidney disease; E66.9 Obesity, unspecified; Z68.35 Body mass index [BMI] 35.0-35.9, adult; E78.00 Pure hypercholesterolemia, unspecified; E78.5 Hyperlipidemia, unspecified; E87.5 Hyperkalemia; E87.8 Other disorders of electrolyte and fluid balance, not elsewhere classified; G47.30 Sleep apnea, unspecified; I12.9 Hypertensive chronic kidney disease with stage 1 through stage 4 chronic kidney disease, or unspecified chronic kidney disease; K75.9 Inflammatory liver disease, unspecified; N20.0 Calculus of kidney; N40.0 Benign prostatic hyperplasia without lower urinary tract symptoms; G47.33 Obstructive sleep apnea (adult) (pediatric); Z66 Do not resuscitate; Z79.01 Long term (current) use of anticoagulants; Z79.899 Other long term (current) drug therapy; Z87.442 Personal history of urinary calculi; Z91.19 Patient's noncompliance with other medical treatment and regimen; Z81.8 Family history of other mental and behavioral disorders
CPT/HCPCS: 31500; 32551; 36415; 36430; 36600; 71045; 74018; 80048; 80053; 80076; 81003; 82435; 82550; 82728; 82803; 82947; 82948; 83036; 83605; 83615; 83735; 83880; 84100; 84132; 84145; 84295; 84484; 85018; 85025; 85027; 85378; 85610; 85730; 86140; 86850; 86900; 86901; 86927; 87040; 87088; 87635; 87804; 87880; 93005; 93306; 94002; 94003; 94660; C1729; C1751; C1894; G0378; J0171; J0360; J0456; J0610; J0692; J0696; J1100; J1650; J1720; J1815; J1940; J2020; J2060; J2185; J2370; J2405; J2704; J2765; J2920; J2930; J3010; J3480; J3490; J7030; J7050; J7070; P9017; P9046; U0003